=== PATIENT | male | born 1975 | race American Indian/Alaskan Native ===

== ENCOUNTER 2018-03-18 08:03 | Emergency (ER) | payer OTHER ==
[2018-03-18 09:16] LABS: Basophils % (Auto) 0.3 % (0.0-1.8); Eosinophils # (Auto) 0.1 K/mm3 (0.0-0.4); Eosinophils % (Auto) 1.8 % (0.0-4.3); Hematocrit 43.5 % (35.5-45.6); Lymphocytes # (Auto) 1.3 K/mm3 (1.2-5.4); Lymphocytes % (Auto) 17.7 % (13.4-35.0); Mean Corpuscular HGB Conc 34 % (32-34); Mean Corpuscular Hemoglobin 31 pg (28-32); Mean Corpuscular Volume 90 fl (84-94); Monocytes # (Auto) 0.6 K/mm3 (0.0-0.8); Monocytes % (Auto) 8.5 % (0.0-7.3); Platelet Count 154 K/mm3 (140-440); Red Blood Count 4.85 M/mm3 (3.65-5.03); Red Cell Distribution Width 13.6 % (13.2-15.2)
[2018-03-18 09:36] LABS: Alanine Aminotransferase 28 units/L (7-56); Albumin 4.1 g/dL (3.9-5); BUN/Creatinine Ratio 9; Blood Urea Nitrogen 6 mg/dL (9-20); Calcium 9.7 mg/dL (8.4-10.2); Hemolysis Index 5; Lipase 144 units/L (13-60)
[2018-03-18] MEDS ORDERED: ZOFRAN IV ONE (10:55)
[2018-03-18] MEDS ORDERED: SUBLIMAZE IV ONE (10:55)
[2018-03-18] MEDS ORDERED: ATIVAN IV ONE (10:55)
[2018-03-18] MEDS ORDERED: NACL 0.9% 1000 ML 1,000 ML IV ONE ×2 (10:55)
[2018-03-18] MEDS ORDERED: ATIVAN IV PRN ×3 (10:56)
[2018-03-18] MEDS ORDERED: VITAMIN B-1 100 MG, FOLVITE 1 MG, INFUVITE 10 ML, MAGNESIUM SULFATE 2 GM in NACL 0.9% 1... IV ONE (10:57)
--- NOTE | 2018-03-18 11:02 | Emergency Department Report ---
HPI - General Chief Complaint: Abdominal Pain Time Seen by Provider: 03/18/18 10:47 - HPI HPI: Room 22 The patient is a 42-year-old male presenting with a chief complaint of abdominal pain. Patient states 2 days ago "it felt like acid" at the top of the stomach. Yesterday patient developed sharp midepigastric abdominal pain that feels consistent with his last bout of pancreatitis. Patient denies nausea vomiting or diarrhea. Patient denies any history of fever. The patient gives his pain a score of 7/10. Patient admits to drinking approximately 50 ounces of beer daily and his last consumption occurred 2 days ago Location: Abdomen, see above Duration: [See above] Quality: Sharp. Consistent with pancreatitis Severity: 7/10 Modifying factors: [see above] Context: [see above] Mode of transportation: [not driving] ED Past Medical Hx - Past Medical History Previous Medical History?: Yes Hx Hypertension: Yes (no meds) Additional medical history: pancreatitis - Surgical History Past Surgical History?: No - Family History Family history: no significant - Social History Smoking Status: Current Every Day Smoker (1/2 pack per day) Substance Use Type: Alcohol (approximately 50 ounces of beer daily), Marijuana ED Review of Systems ROS: Stated complaint: STOMACH AND CHEST PAIN Other details as noted in HPI Constitutional: denies: fever Gastrointestinal: abdominal pain. denies: nausea, vomiting, diarrhea Physical Exam - Physical Exam Vital Signs: Vital Signs 03/18/18 03/18/18 03/18/18 08:17 09:57 10:01 Temperature 98.7 F Pulse Rate 93 H Respiratory 20 Rate Blood Pressure 135/103 148/92 O2 Sat by Pulse 99 99 99 Oximetry 03/18/18 10:06 Temperature 97.7 F Pulse Rate Respiratory 20 Rate Blood Pressure O2 Sat by Pulse 99 Oximetry Physical Exam: GENERAL: The patient is well-developed well-nourished male lying on stretcher not appearing to be in acute distress. Mild tremulousness noted when patient moves himself on bed HEENT: Normocephalic. Atraumatic. Extraocular motions are intact. Patient has moist mucous membranes. NECK: Supple. Trachea midline CHEST/LUNGS: Clear to auscultation. There is no respiratory distress noted. HEART/CARDIOVASCULAR: Regular. There is no tachycardia. There is no gallop rub or murmur. ABDOMEN: Abdomen is soft, with tenderness to palpation in the midepigastric region. There is no tenderness elsewhere in the abdomen. Patient has normal bowel sounds. There is no abdominal distention. SKIN: There is no rash. There is no edema. There is no diaphoresis. NEURO: The patient is awake, alert, and oriented. The patient is cooperative. Mild tremulousness noted. The patient has normal speech MUSCULOSKELETAL: There is no evidence of acute injury. ED Course Vital Signs 03/18/18 03/18/18 03/18/18 08:17 09:57 10:01 Temperature 98.7 F Pulse Rate 93 H Respiratory 20 Rate Blood Pressure 135/103 148/92 O2 Sat by Pulse 99 99 99 Oximetry 03/18/18 10:06 Temperature 97.7 F Pulse Rate Respiratory 20 Rate Blood Pressure O2 Sat by Pulse 99 Oximetry ED Medical Decision Making - Lab Data Result diagrams: 03/18/18 08:51 03/18/18 08:51 Laboratory Tests 03/18/18 03/18/18 08:51 08:51 WBC 7.4 RBC 4.85 Hgb 15.0 Hct 43.5 MCV 90 MCH 31 MCHC 34 RDW 13.6 Plt Count 154 Lymph % (Auto) 17.7 Alexander % (Auto) 8.5 H Eos % (Auto) 1.8 Baso % (Auto) 0.3 Lymph # 1.3 Alexander # 0.6 Eos # 0.1 Baso # 0.0 Seg Neutrophils % 71.7 H Seg Neutrophils # 5.3 Sodium 134 L Potassium 3.5 L Chloride 91.3 L Carbon Dioxide 28 Anion Gap 18 BUN 6 L Creatinine 0.7 L Estimated GFR > 60 BUN/Creatinine Ratio 9 Glucose 106 H Calcium 9.7 Total Bilirubin 0.80 AST 41 H ALT 28 Alkaline Phosphatase 133 H Total Protein 8.0 Albumin 4.1 Albumin/Globulin Ratio 1.1 Lipase 144 H - EKG Data -: EKG Interpreted by Me EKG shows normal: sinus rhythm Rate: normal - EKG Data When compared to previous EKG there are: previous EKG unavailable Interpretation: other (early repolarization) - Differential Diagnosis pancreatitis, peptic ulcer disease, GERD Critical care attestation.: If time is entered above; I have spent that time in minutes in the direct care of this critically ill patient, excluding procedure time. ED Disposition Clinical Impression: Acute pancreatitis, Alcohol withdrawal Disposition: DC-09 OP ADMIT IP TO THIS HOSP Is pt being admited?: Yes Does the pt Need Aspirin: No Condition: Fair Referrals: PRIMARY CARE,MD [Primary Care Provider] - 3-5 Days Time of Disposition: 11:04 (hospitalist paged (Dr Marsh))
--- NOTE | 2018-03-18 12:51 | History and Physical Report ---
History of Present Illness Chief complaint: My stomach hurts History of present illness: 42 YO Male with ETOH Abuse, Chronic Pancreatitis, HTN, Nicotine Dependence, Noncompliance presents to ED for evaluation of abdominal pain. Pt seen and evaluated in ED and found to have abdominal pain secondary to chronic pancreatitis s/p ETOH ingestion. Pt treated with supportive care, IVF resuscitation with improvement in symptoms. Pt medically optimized and back to usual states of health. Pt counseled regarding ETOH cessation, and compliance with prehospital mediation. Pt acknowledges understanding instruction. Pt to f/ u pcp 5 days, and AA at discharge. Past History Past Medical History: hypertension Past Surgical History: No surgical history Social history: single, lives with family, smoking, alcohol abuse Family history: hypertension Medications and Allergies Allergies Allergy/AdvReac Type Severity Reaction Status Date / Time No Known Allergies Allergy Unverified 03/18/18 08:17 Home Medications Medication Instructions Recorded Confirmed Last Taken Type Ondansetron [Zofran Odt] 4 mg PO Q8HR #15 tab.rapdis 03/18/18 Unknown Rx RX: Folic Acid [Folvite] 1 mg PO QDAY #30 tablet 03/18/18 Unknown Rx RX: Multivitamin Tab [Multiple 1 each PO QDAY #30 tablet 03/18/18 Unknown Rx Vitamin TAB (Theragran)] RX: Thiamine [Vitamin B-1] 100 mg PO QDAY #30 tablet 03/18/18 Unknown Rx oxyCODONE /ACETAMINOPHEN [Percocet 1 tab PO Q6HR PRN #10 tablet 03/18/18 Unknown Rx 5/325] Active Meds: Active Medications Sodium Chloride (Nacl 0.9% 1000 Ml) 1,000 mls @ 125 mls/hr IV ONCE ONE Stop: 03/18/18 18:54 Thiamine HCl 100 mg/ Folic Acid 1 mg/ Multivitamins/Minerals 10 ml/ Magnesium Sulfate 2 gm/ Sodium Chloride 1,015.2 mls @ 250 mls/hr IV ONCE ONE Stop: 03/18/18 15:00 Last Admin: 03/18/18 12:02 Dose: 250 mls/hr Lorazepam (Ativan) 2 mg IV Q1HR PRN PRN Reason: CIWA-Ar 8-15 Lorazepam (Ativan) 4 mg IV Q1HR PRN PRN Reason: CIWA-Ar 16-25 Lorazepam (Ativan) 4 mg IV Q15MIN PRN PRN Reason: CIWA-Ar >25 Review of Systems Constitutional: no weight loss, no weight gain, no fever, no chills Ears, nose, mouth and throat: no ear pain, no ear discharge, no tinnitis, no decreased hearing, no nose pain, no nasal congestion Cardiovascular: no chest pain, no orthopnea, no palpitations, no rapid/ irregular heart beat, no edema, no syncope Respiratory: no cough, no cough with sputum, no excessive sputum, no hemoptysis Gastrointestinal: abdominal pain, no nausea, no vomiting, no diarrhea, no constipation, no change in bowel habits, no hematemesis, no coffee ground emesis , no BRBPR, no melena, no hematochezia, no loss of appetite, no early satiety, no heartburn, no jaundice, no dyspepsia/bloating, no early satiety Genitourinary Male: no hematuria, no flank pain, no discharge, no urinary frequency, no urinary hesitancy Rectal: no pain, no incontinence, no bleeding Musculoskeletal: no neck stiffness, no neck pain, no shooting arm pain, no arm numbness/tingling, no low back pain, no shooting leg pain Integumentary: no rash, no pruritis, no redness, no sores, no wounds, no jaundice, no boils Neurological: no transient paralysis, no paralysis, no weakness, no parathesias , no numbness, no tingling, no syncope Psychiatric: no anxiety, no memory loss, no change in sleep habits, no sleep disturbances, no insomnia, no hypersomnia, no change in appetite, no change in libido, no suicidal ideation Endocrine: no cold intolerance, no heat intolerance, no polyphagia, no excessive thirst, no polydipsia, no polyuria, no nocturia, no excessive sweating Hematologic/Lymphatic: no easy bruising, no easy bleeding, no lymphadenopathy, no lymphedema Allergic/Immunologic: no urticaria, no allergic rhinitis, no wheezing, no persistent infections, no anaphylaxis Exam - Constitutional Vitals: Temp Pulse Resp BP Pulse Ox 97.7 F 93 H 20 142/100 97 03/18/18 10:06 03/18/18 08:17 03/18/18 10:06 03/18/18 11:01 03/18/18 11:01 General appearance: Present: no acute distress, well-nourished - EENT Eyes: Present: PERRL ENT: hearing intact, clear oral mucosa - Neck Neck: Present: supple, normal ROM - Respiratory Respiratory effort: normal Respiratory: bilateral: CTA - Cardiovascular Heart Sounds: Present: S1 & S2. Absent: rub, click - Extremities Extremities: pulses symmetrical, No edema Peripheral Pulses: within normal limits - Abdominal General gastrointestinal: Present: soft, non-tender, non-distended, normal bowel sounds Male genitourinary: Present: normal - Integumentary Integumentary: Present: clear, warm, dry - Musculoskeletal Musculoskeletal: gait normal, strength equal bilaterally - Psychiatric Psychiatric: appropriate mood/affect, intact judgment & insight - Neurologic Neurologic: CNII-XII intact, moves all extremities Results - Labs CBC & Chem 7: 03/18/18 08:51 03/18/18 08:51 Labs: Abnormal lab results 03/18/18 03/18/18 Range/Units 08:51 08:51 [place] % (Auto) 8.5 H (0.0-7.3) % Seg Neutrophils % 71.7 H (40.0-70.0) % Sodium 134 L (137-145) mmol/L Potassium 3.5 L (3.6-5.0) mmol/L Chloride 91.3 L (98-107) mmol/L BUN 6 L (9-20) mg/dL Creatinine 0.7 L (0.8-1.5) mg/dL Glucose 106 H (75-100) mg/dL AST 41 H (5-40) units/L Alkaline Phosphatase 133 H (35-129) units/L Lipase 144 H (13-60) units/L Assessment and Plan - Patient Problems (1) Abdominal pain Status: Acute Plan to address problem: Secondary to chronic pancreatitis, and ETOH abuse. Pt treated with Thiamine, folic acid, and multivitamin, f/u with pcp 5 days, and AA at discharge. Pt counseled regarding ETOH cessation. (2) ETOH abuse Status: Acute Plan to address problem: AA f/u at discharge
[2018-03-18] MEDS ORDERED: PERCOCET 5/325 ONE (14:30)
[2018-03-18] MEDS ORDERED: PERCOCET 5/325 PO ONE (14:30)
[2018-03-18 15:16] VITALS: BP 142/91
--- NOTE | 2018-03-18 15:20 | Cat Scan Report ---
FINAL REPORT EXAM: CT ABDOMEN W CON HISTORY: abdominal pain TECHNIQUE: A CT of the abdomen was performed. Images extend from the diaphragm to the iliac crests. 100 cc Omnipaque 300 IV was administered. No oral contrast was administered. Coronal and sagittal reformatted images were obtained. PRIORS: None. FINDINGS: The visualized aspects of the lung bases are clear. There is fatty infiltration of the liver. There is edema/inflammatory change around the pancreatic head and between the pancreatic head and duodenum. This appearance is consistent with acute pancreatitis. There is no pseudocyst or evidence of pancreatic necrosis. I cannot confirm any calcified gallstones. The visualized spleen, adrenal glands and kidneys demonstrate no significant abnormalities. There is no abdominal aortic aneurysm. The appendix is normal. There is no evidence of intestinal obstruction. There is no free intraperitoneal air. IMPRESSION: Acute pancreatitis. Fatty infiltration of the liver.
== END 2018-03-18 16:06 | disposition admitted as inpatient to this hospital (09) ==
LOC: ED 08:03
DX: R10.9 Unspecified abdominal pain (principal); F10.10 Alcohol abuse, uncomplicated; I10 Essential (primary) hypertension; K86.1 Other chronic pancreatitis
CPT/HCPCS: 36415; 74160; 80053; 83690; 85025; 93005; 96361; 96365; 96366; 96375; 99284; J2060; J2405; J3010; J3411; J3475; J7030; Q9967

== ENCOUNTER 2019-04-12 02:00 | Emergency (ER) | payer OTHER ==
[2019-04-12] MEDS ORDERED: ASPIRIN PO ONE (02:09)
--- NOTE | 2019-04-12 02:38 | XRay Report ---
PROCEDURE: XR CHEST 1V AP TECHNIQUE: Chest radiograph single view. HISTORY: Chest Pain COMPARISONS: None . FINDINGS: Heart: Normal. Mediastinum/Vessels: Normal. Lungs/Pleural space: Normal. Bony thorax: No acute osseous abnormality. Life support devices: None. IMPRESSION: No acute cardiopulmonary abnormality. This document is electronically signed by Dejan Mtz MD., Apr 12 2019 02:35:56 AM ET
[2019-04-12 02:42] LABS: Basophils % (Auto) 0.7 % (0.0-1.8); Eosinophils # (Auto) 0.1 K/mm3 (0.0-0.4); Eosinophils % (Auto) 1.9 % (0.0-4.3); Hematocrit 44.5 % (35.5-45.6); Hemoglobin 15.1 gm/dl (11.8-15.2); Lymphocytes # (Auto) 1.6 K/mm3 (1.2-5.4); Lymphocytes % (Auto) 27.9 % (13.4-35.0); Mean Corpuscular HGB Conc 34 % (32-34); Mean Corpuscular Volume 94 fl (84-94); Monocytes # (Auto) 0.5 K/mm3 (0.0-0.8); Monocytes % (Auto) 7.9 % (0.0-7.3); Platelet Count 183 K/mm3 (140-440); Red Blood Count 4.73 M/mm3 (3.65-5.03); Red Cell Distribution Width 12.7 % (13.2-15.2)
[2019-04-12 04:07] LABS: BUN/Creatinine Ratio 6; Blood Urea Nitrogen 5 mg/dL (9-20); Calcium 9.5 mg/dL (8.4-10.2); Hemolysis Index 11
--- NOTE | 2019-04-12 08:24 | Emergency Department Report ---
ED Abdominal Pain HPI - General Chief Complaint: Back Pain/Injury Stated Complaint: LOWER BACK PAIN/ROBERT Source: patient Mode of arrival: Ambulatory Limitations: No Limitations - History of Present Illness Initial Comments: This is a 43-year-old -[place] male who presents to the emergency room with abdominal pain radiating into chest and back for 2 days. Past medical hi story of pancreatitis and hypertension. Patient states he drinks beer occasionally. Patient states he doesn't drink daily since the diagnosis of pancreatitis last year. He also reports occasional cough. He has taken Tylenol which stops pain for about 3-4 hours and then it returns. Patient reports pain is sharp and constant stabbing pain that lasts for several hours. He denies nausea, vomiting, palpitations, shortness of breath, urinary frequency, urgency, or dysuria. MD Complaint: abdominal pain Onset/Timin -: days(s) Location: diffuse Radiation: back, chest Migration to: no migration Severity: severe Severity scale (0 -10): 9 Quality: stabbing, sharp Consistency: intermittent Improves With: nothing Worsens With: nothing Associated Symptoms: denies other symptoms Treatments Prior to Arrival: NSAIDs - Related Data Previous Rx's Medication Instructions Recorded Last Taken Type Folic Acid [Folvite] 1 mg PO QDAY #30 tablet 03/18/18 Unknown Rx Multivitamin Tab [Multiple Vitamin 1 each PO QDAY #30 tablet 03/18/18 Unknown Rx TAB (Theragran)] Ondansetron [Zofran Odt] 4 mg PO Q8HR #15 tab.rapdis 03/18/18 Unknown Rx Thiamine [Vitamin B-1] 100 mg PO QDAY #30 tablet 03/18/18 Unknown Rx oxyCODONE /ACETAMINOPHEN [Percocet 1 tab PO Q6HR PRN #10 tablet 03/18/18 Unknown Rx 5/325] HYDROcodone/APAP 5-325 [Marcy 1 each PO Q6HR PRN #12 tablet 04/12/19 Unknown Rx 5/325] Naproxen [Naprosyn] 500 mg PO TID PRN #20 tablet 04/12/19 Unknown Rx Allergies Allergy/AdvReac Type Severity Reaction Status Date / Time No Known Allergies Allergy Unverified 03/18/18 08:17 ED Review of Systems ROS: Stated complaint: LOWER BACK PAIN/ROBERT Other details as noted in HPI Constitutional: denies: chills, fever Respiratory: cough. denies: shortness of breath, wheezing Cardiovascular: denies: chest pain, palpitations Gastrointestinal: abdominal pain. denies: nausea, diarrhea Genitourinary: denies: urgency, dysuria Musculoskeletal: back pain. denies: joint swelling, arthralgia Skin: denies: rash, lesions Neurological: denies: headache, weakness, paresthesias Psychiatric: denies: anxiety, depression ED Past Medical Hx - Past Medical History Previous Medical History?: Yes Hx Hypertension: Yes (no meds) Additional medical history: pancreatitis - Surgical History Past Surgical History?: No - Social History Smoking Status: Current Every Day Smoker Substance Use Type: None - Medications Home Medications: Home Medications Medication Instructions Recorded Confirmed Last Taken Type Folic Acid [Folvite] 1 mg PO QDAY #30 tablet 03/18/18 Unknown Rx Multivitamin Tab [Multiple Vitamin 1 each PO QDAY #30 tablet 03/18/18 Unknown Rx TAB (Theragran)] Ondansetron [Zofran Odt] 4 mg PO Q8HR #15 tab.rapdis 03/18/18 Unknown Rx Thiamine [Vitamin B-1] 100 mg PO QDAY #30 tablet 03/18/18 Unknown Rx oxyCODONE /ACETAMINOPHEN [Percocet 1 tab PO Q6HR PRN #10 tablet 03/18/18 Unknown Rx 5/325] HYDROcodone/APAP 5-325 [Marcy 1 each PO Q6HR PRN #12 tablet 04/12/19 Unknown Rx 5/325] Naproxen [Naprosyn] 500 mg PO TID PRN #20 tablet 04/12/19 Unknown Rx ED Physical Exam - General Limitations: No Limitations General appearance: alert, in no apparent distress - Respiratory Respiratory exam: Present: normal lung sounds bilaterally. Absent: respiratory distress - Cardiovascular Cardiovascular Exam: Present: regular rate, normal rhythm. Absent: systolic murmur, diastolic murmur, rubs, gallop - GI/Abdominal GI/Abdominal exam: Present: soft, tenderness (right upper quadrant and right lower quadrant tenderness), normal bowel sounds. Absent: distended, guarding, rebound, rigid, organomegaly, mass, bruit, pulsatile mass, hernia - Back Exam Back exam: Present: full ROM. Absent: CVA tenderness (R), CVA tenderness (L) - Neurological Exam Neurological exam: Present: alert, oriented X3, normal gait - Psychiatric Psychiatric exam: Present: normal affect, normal mood - Skin Skin exam: Present: warm, dry, intact, normal color. Absent: rash ED Course Vital Signs 04/12/19 02:05 Temperature 97.7 F Pulse Rate 90 Respiratory 18 Rate Blood Pressure 137/98 O2 Sat by Pulse 99 Oximetry ED Medical Decision Making - Lab Data Result diagrams: 04/12/19 02:29 04/12/19 02:29 Lab Results 04/12/19 04/12/19 04/12/19 Range/Units 02:29 02:29 05:22 WBC 5.9 (4.5-11.0) K/mm3 RBC 4.73 (3.65-5.03) M/mm3 Hgb 15.1 (11.8-15.2) gm/dl Hct 44.5 (35.5-45.6) % MCV 94 (84-94) fl MCH 32 (28-32) pg MCHC 34 (32-34) % RDW 12.7 L (13.2-15.2) % Plt Count 183 (140-440) K/mm3 Lymph % (Auto) 27.9 (13.4-35.0) % Johnston % (Auto) 7.9 H (0.0-7.3) % Eos % (Auto) 1.9 (0.0-4.3) % Baso % (Auto) 0.7 (0.0-1.8) % Lymph # 1.6 (1.2-5.4) K/mm3 Johnston # 0.5 (0.0-0.8) K/mm3 Eos # 0.1 (0.0-0.4) K/mm3 Baso # 0.0 (0.0-0.1) K/mm3 Seg Neutrophils % 61.6 (40.0-70.0) % Seg Neutrophils # 3.6 (1.8-7.7) K/mm3 Sodium 136 L (137-145) mmol/L Potassium 3.8 (3.6-5.0) mmol/L Chloride 96.4 L (98-107) mmol/L Carbon Dioxide 26 (22-30) mmol/L Anion Gap 17 mmol/L BUN 5 L (9-20) mg/dL Creatinine 0.9 (0.8-1.5) mg/dL Estimated GFR > 60 ml/min BUN/Creatinine Ratio 6 % Glucose 133 H (75-100) mg/dL Calcium 9.5 (8.4-10.2) mg/dL Troponin T < 0.010 < 0.010 (0.00-0.029) ng/mL Lipase (13-60) units/L Urine Color (Yellow) Urine Turbidity (Clear) Urine pH (5.0-7.0) Ur Specific [place] (1.003-1.030) Urine Protein (Negative) mg/dL Urine Glucose (UA) (Negative) mg/dL Urine Ketones (Negative) mg/dL Urine Blood (Negative) Urine Nitrite (Negative) Urine Bilirubin (Negative) Urine Urobilinogen (<2.0) mg/dL Ur Leukocyte Esterase (Negative) Urine WBC (Auto) (0.0-6.0) /HPF Urine RBC (Auto) (0.0-6.0) /HPF U Epithel Cells (Auto) (0-13.0) /HPF Urine Bacteria (Auto) (Negative) /HPF 04/12/19 04/12/19 Range/Units 08:17 08:38 WBC (4.5-11.0) K/mm3 RBC (3.65-5.03) M/mm3 Hgb (11.8-15.2) gm/dl Hct (35.5-45.6) % MCV (84-94) fl MCH (28-32) pg MCHC (32-34) % RDW (13.2-15.2) % Plt Count (140-440) K/mm3 Lymph % (Auto) (13.4-35.0) % Johnston % (Auto) (0.0-7.3) % Eos % (Auto) (0.0-4.3) % Baso % (Auto) (0.0-1.8) % Lymph # (1.2-5.4) K/mm3 Johnston # (0.0-0.8) K/mm3 Eos # (0.0-0.4) K/mm3 Baso # (0.0-0.1) K/mm3 Seg Neutrophils % (40.0-70.0) % Seg Neutrophils # (1.8-7.7) K/mm3 Sodium (137-145) mmol/L Potassium (3.6-5.0) mmol/L Chloride (98-107) mmol/L Carbon Dioxide (22-30) mmol/L Anion Gap mmol/L BUN (9-20) mg/dL Creatinine (0.8-1.5) mg/dL Estimated GFR ml/min BUN/Creatinine Ratio % Glucose (75-100) mg/dL Calcium (8.4-10.2) mg/dL Troponin T < 0.010 (0.00-0.029) ng/mL Lipase 190 H (13-60) units/L Urine Color Yellow (Yellow) Urine Turbidity Clear (Clear) Urine pH 5.0 (5.0-7.0) Ur Specific [place] 1.011 (1.003-1.030) Urine Protein <15 mg/dl (Negative) mg/dL Urine Glucose (UA) Neg (Negative) mg/dL Urine Ketones Neg (Negative) mg/dL Urine Blood Neg (Negative) Urine Nitrite Neg (Negative) Urine Bilirubin Neg (Negative) Urine Urobilinogen 4.0 (<2.0) mg/dL Ur Leukocyte Esterase Neg (Negative) Urine WBC (Auto) 1.0 (0.0-6.0) /HPF Urine RBC (Auto) 3.0 (0.0-6.0) /HPF U Epithel Cells (Auto) < 1.0 (0-13.0) /HPF Urine Bacteria (Auto) 1+ (Negative) /HPF - Radiology Data Radiology results: report reviewed PROCEDURE: XR CHEST 1V AP TECHNIQUE: Chest radiograph single view. HISTORY: Chest Pain COMPARISONS: None . FINDINGS: Heart: Normal. Mediastinum/Vessels: Normal. Lungs/Pleural space: Normal. Bony thorax: No acute osseous abnormality. Life support devices: None. IMPRESSION: No acute cardiopulmonary abnormality. CT ABDOMEN PELVIS WITH CONTRAST: HISTORY: Right upper quadrant and left upper quadrant tenderness, pancreatitis. COMPARISON: 03/18/18. TECHNIQUE: Helical CT in 1.25mm intervals following IV contrast. Sagittal and coronal reconstructions. FINDINGS: Lung bases: Normal. Liver: Mild diffuse fatty infiltration is noted throughout the liver although this has improved since the comparison exam. No focal liver mass. Biliary system: Normal. Pancreas: Minimal fluid and fat stranding surrounds the pancreatic head. This could represent early pancreatitis. No obvious mass, necrosis or pseudocyst. Spleen: Normal. Kidneys/ureters/bladder: Normal. Adrenal glands: Normal. Aorta: Normal. Intestines: Normal. Appendix: Normal. Pelvic viscera: Normal. Ascites: None. Adenopathy: None. Musculoskeletal: Normal. IMPRESSION: Findings suggestive of acute pancreatitis. See above correlate with the patient's clinical presentation. Hepatic steatosis, improved since 03/18/18. - Medical Decision Making Patient was examined by me. Vitals are normal and patient is in no acute distress. IV site initiated. Given Dilaudid 1 mg IV. Obtain CBC, CMP, troponin is 3, lipase, chest x-ray, urinalysis, and CT of abdomen and pelvis with contrast. Lipase elevated. All other labs are unremarkable. Chest x-ray and CT of abdomen and pelvis obtained and dictated by radiologist. Chest x-ray negative of acute cardiopulmonary findings. CT of abdomen and pelvis Findings suggestive of acute pancreatitis. See above correlate with the patient's clinical presentation. Hepatic steatosis, improved since 03/18/18. Patient is tolerating oral fluids while in the ER. There is no evidence of biliary tract disease. He has a history of chronic pancreatitis which is acute. Patient will be discharged home with Marcy and naproxen for pain control. Follow-up with the primary care provider at [facility]. Plan discussed with patient to discharge home and treat outpatient. He agrees with ER plan. Patient discharged home in stable condition. Follow up with PCP in 2-3 days. Critical care attestation.: If time is entered above; I have spent that time in minutes in the direct care of this critically ill patient, excluding procedure time. ED Disposition Clinical Impression: Abdominal pain Qualifiers: Abdominal location: generalized Qualified Code(s): R10.84 - Generalized abdominal pain Acute pancreatitis Qualifiers: Pancreatitis type: alcohol induced Acute pancreatitis complication: no infection or necrosis Qualified Code(s): K85.20 - Alcohol induced acute pancreatitis without necrosis or infection Disposition: - TO HOME OR SELFCARE Is pt being admited?: No Does the pt Need Aspirin: No Condition: Stable Instructions: Pancreatitis (ED), Acute Abdominal Pain (ED) Additional Instructions: Take pain medication every 6-8 hours as needed for pain. Follow up with a primary care doctor on the referral slips below in the next 3-5 days. Return to the emergency room if nausea, vomiting, diarrhea, unable to keep food or liquid down, or increasing pain. Prescriptions: Naproxen [Naprosyn] 500 mg PO TID PRN #20 tablet PRN Reason: Pain, Moderate (4-6) HYDROcodone/APAP 5-325 [Marcy 5/325] 1 each PO Q6HR PRN #12 tablet PRN Reason: Pain Referrals: KEVYN KERNS MD [Primary Care Provider] - 3-[address] [facility] [Outside] - 3-5 Days [facility] [Outside] - 3-5 Days Forms: Work/School Release Form(ED) Time of Disposition: 09:56
[2019-04-12 09:04] LABS: Color,Urine Yellow (Yellow)
[2019-04-12 09:05] LABS: Bacteria,Urine 1+ /HPF (Negative); Bilirubin,Urine NEG (Negative); Blood,Urine NEG (Negative); Protein,Urine <15 mg/dL mg/dL (Negative)
--- NOTE | 2019-04-12 09:33 | Cat Scan Report ---
CT ABDOMEN PELVIS WITH CONTRAST: HISTORY: Right upper quadrant and left upper quadrant tenderness, pancreatitis. COMPARISON: 03/18/18. TECHNIQUE: Helical CT in 1.25mm intervals following IV contrast. Sagittal and coronal reconstructions. FINDINGS: Lung bases: Normal. Liver: Mild diffuse fatty infiltration is noted throughout the liver although this has improved since the comparison exam. No focal liver mass. Biliary system: Normal. Pancreas: Minimal fluid and fat stranding surrounds the pancreatic head. This could represent early pancreatitis. No obvious mass, necrosis or pseudocyst. Spleen: Normal. Kidneys/ureters/bladder: Normal. Adrenal glands: Normal. Aorta: Normal. Intestines: Normal. Appendix: Normal. Pelvic viscera: Normal. Ascites: None. Adenopathy: None. Musculoskeletal: Normal. IMPRESSION: Findings suggestive of acute pancreatitis. See above correlate with the patient's clinical presentation. Hepatic steatosis, improved since 03/18/18.
[2019-04-12] MEDS ORDERED: DILAUDID IV ONE (09:42)
[2019-04-12 10:10] VITALS: BP 131/90
== END 2019-04-12 10:09 | disposition home or self-care (01) ==
LOC: ED 02:00
DX: K85.20 Alcohol induced acute pancreatitis without necrosis or infection (principal); I10 Essential (primary) hypertension; F17.200 Nicotine dependence, unspecified, uncomplicated
CPT/HCPCS: 36415; 71045; 74177; 80048; 81001; 83690; 84484; 85025; 93005; 93010; 96374; 99284; J1170; Q9967

== ENCOUNTER 2019-06-22 05:57 | Emergency (ER) | payer SELFPAY ==
[2019-06-22 06:10] VITALS: BP 142/101
[2019-06-22] MEDS ORDERED: ZOFRAN IV ONE (06:29)
[2019-06-22] MEDS ORDERED: SUBLIMAZE IV ONE (06:29)
[2019-06-22] MEDS ORDERED: NACL 0.9% 1000 ML 1,000 ML IV ONE (06:29)
--- NOTE | 2019-06-22 06:33 | Emergency Department Report ---
HPI - General Chief Complaint: Abdominal Pain Time Seen by Provider: 06/22/19 06:23 - HPI HPI: Room 26 The patient is a 43-year-old male presenting with a chief complaint of abdominal pain. Patient has a history of daily alcohol use and states she's been diagnosed with pancreatitis 2 times in the past (most recent time approximately 4.5 months ago). The patient states for the past 3 days he's had periumbilical abdominal pain is constant and stabbing in nature consistent with his previous bouts of pancreatitis. Patient denies nausea vomiting or diarrhea. Patient denies history of fever. The patient currently gives his pain a score of 10/10 Location: Abdomen Duration: 3 days Quality: Stabbing Severity: 10/10 Modifying factors: [place]ley helps momentarily Context: [see above] Mode of transportation: [not driving] ED Past Medical Hx - Past Medical History Previous Medical History?: Yes Hx Hypertension: Yes (no meds) Additional medical history: pancreatitis - Surgical History Past Surgical History?: No - Family History Family history: no significant - Social History Smoking Status: Current Every Day Smoker (1/2 pack per day) Substance Use Type: Alcohol (daily), Marijuana - Medications Home Medications: Home Medications Medication Instructions Recorded Confirmed Last Taken Type Folic Acid [Folvite] 1 mg PO QDAY #30 tablet 03/18/18 Unknown Rx Multivitamin Tab [Multiple Vitamin 1 each PO QDAY #30 tablet 03/18/18 Unknown Rx TAB (Theragran)] Ondansetron [Zofran Odt] 4 mg PO Q8HR #15 tab.rapdis 03/18/18 Unknown Rx Thiamine [Vitamin B-1] 100 mg PO QDAY #30 tablet 03/18/18 Unknown Rx oxyCODONE /ACETAMINOPHEN [Percocet 1 tab PO Q6HR PRN #10 tablet 03/18/18 Unknown Rx 5/325] HYDROcodone/APAP 5-325 [[place] 1 each PO Q6HR PRN #12 tablet 04/12/19 Unknown Rx 5/325] Naproxen [Naprosyn] 500 mg PO TID PRN #20 tablet 04/12/19 Unknown Rx HYDROcodone/APAP 5-325 [[place] 1 - 2 each PO Q6HR PRN #10 tablet 06/22/19 Unknown Rx 5/325] ED Review of Systems ROS: Stated complaint: PANCREATIS FLARE UP Other details as noted in HPI Constitutional: denies: fever Eyes: denies: eye pain ENT: denies: throat pain Respiratory: no symptoms reported Cardiovascular: denies: chest pain Endocrine: no symptoms reported Gastrointestinal: abdominal pain. denies: nausea, vomiting, diarrhea Genitourinary: denies: dysuria Musculoskeletal: back pain Neurological: denies: headache Physical Exam - Physical Exam Vital Signs: Vital Signs 06/22/19 06:08 Temperature 97.7 F Pulse Rate 109 H Respiratory 18 Rate Blood Pressure 142/101 O2 Sat by Pulse 99 Oximetry Physical Exam: GENERAL: The patient is well-developed well-nourished male lying on stretcher not appearing to be in acute distress. [] HEENT: Normocephalic. Atraumatic. Extraocular motions are intact. Patient has moist mucous membranes. NECK: Supple. Trachea midline CHEST/LUNGS: Clear to auscultation. There is no respiratory distress noted. HEART/CARDIOVASCULAR: Regular. There is no tachycardia. There is no gallop rub or murmur. ABDOMEN: Abdomen is soft, with tenderness diffusely but greatest in the right upper quadrant and midepigastric region. There is no tenderness to palpation in the right lower quadrant. Patient has normal bowel sounds. There is no abdominal distention. SKIN: There is no rash. There is no edema. There is no diaphoresis. NEURO: The patient is awake, alert, and oriented. The patient is cooperative. The patient has normal speech MUSCULOSKELETAL: There is no CVA tenderness. There is no evidence of acute injury. ED Course Vital Signs 06/22/19 06:08 Temperature 97.7 F Pulse Rate 109 H Respiratory 18 Rate Blood Pressure 142/101 O2 Sat by Pulse 99 Oximetry ED Medical Decision Making - Lab Data Result diagrams: 06/22/19 06:17 06/22/19 06:17 Laboratory Tests 06/22/19 06/22/19 06/22/19 06:17 06:17 Unknown WBC 5.3 RBC 5.10 H Hgb 16.4 H Hct 47.0 H MCV 92 MCH 32 MCHC 35 H RDW 12.9 L Plt Count 171 Lymph % (Auto) 21.7 [place] % (Auto) 11.9 H Eos % (Auto) 2.3 Baso % (Auto) 0.5 Lymph # 1.1 L [place] # 0.6 Eos # 0.1 Baso # 0.0 Seg Neutrophils % 63.6 Seg Neutrophils # 3.4 Sodium 132 L Potassium 4.1 Chloride 90.2 L Carbon Dioxide 25 Anion Gap 21 BUN 8 L Creatinine 0.8 Estimated GFR > 60 BUN/Creatinine Ratio 10 Glucose 93 Calcium 10.0 Total Bilirubin 1.30 H AST 49 H ALT 42 Alkaline Phosphatase 149 H Total Protein 8.3 H Albumin 4.3 Albumin/Globulin Ratio 1.1 Lipase 261 H Urine Color [place] Urine Turbidity Clear Urine pH 5.0 Ur Specific [place] 1.021 Urine Protein 30 mg/dl Urine Glucose (UA) Neg Urine Ketones 80 Urine Blood Neg Urine Nitrite Neg Urine Bilirubin Neg Urine Urobilinogen 4.0 Ur Leukocyte Esterase Neg Urine WBC (Auto) 3.0 Urine RBC (Auto) 4.0 U Epithel Cells (Auto) 2.0 Urine Mucus Few - Radiology Data Radiology results: report reviewed (right upper quadrant ultrasound), image reviewed (right upper quadrant ultrasound) [facility] [address] [place] [address] Ultrasound Report Signed Patient: DRE HERNANDEZ MR#: [id number] : 1975 Acct:[id number] Age/Sex: 43 / M ADM Date: 06/22/19 Loc: ED A ttending Dr: Ordering Physician: TODD WORLEY MD Date of Service: 06/22/19 Procedure(s): US abdomen limited Accession Number(s): [id number] cc: TODD WORLEY MD ULTRASOUND ABDOMEN, LIMITED (RIGHT UPPER QUADRANT) INDICATION / CLINICAL INFORMATION: Right upper quadrant, epigastric pain. Pancreatitis. COMPARISON: CT of the abdomen and pelvis 04/12/2019 FINDINGS: PANCREAS: Visualized portion of the pancreatic body appears more hypoechoic than expected, suggesting edema. No focal pancreatic lesion is identified. LIVER: Normal contour. No focal hepatic lesion. Diffusely and markedly increased hepatic echogenicity is noted. GALLBLADDER: No significant abnormality. No stones or sludge identified. BILE DU CTS: No significant abnormality. Common bile duct measures 1 mm. FREE FLUID: None. ADDITIONAL FINDINGS: None. IMPRESSION: 1. Diffuse hepatic steatosis. 2. Normal gallbladder. No stones or sludge identified. 3. Pancreatic parenchyma appears hypoechoic, which could be due to edema. Correlation with laboratory analysis for additional evidence of pancreatitis is recommended. Signer Name: Eze Benton MD Signed: 06/22/2019 8:44 AM Workstation Name: [id number] Transcribed By: DMB Dictated By: Eze Benton MD Electronically Authenticated By: Eze Benton MD Signed Date/Time: 06/22/19843 DD/ 6 TD/TT: - Medical Decision Making Discussed with the patient his study findings. I recommended admission to the hospital for further evaluation/management of his acute pancreatitis. Patient states he has a pressing family matters that he needs to attend to, but he will return to the hospital for admission. Strong warnings given - Differential Diagnosis pancreatitis, gastritis, cholelithiasis, peptic ulcer disease Critical care attestation.: If time is entered above; I have spent that time in minutes in the direct care of this critically ill patient, excluding procedure time. ED Disposition Clinical Impression: Acute abdominal pain, Acute pancreatitis, ETOH abuse Disposition: LEFT AGAINST MED ADVICE Is pt being admited?: No Does the pt Need Aspirin: No Condition: Undetermined Instructions: Pancreatitis (ED) Additional Instructions: Return to the emergency department immediately should you develop worsening symptoms, fever, inability to tolerate food or liquid or any other concerns. Prescriptions: HYDROcodone/APAP 5-325 [[place] 5/325] 1 - 2 each PO Q6HR PRN #10 tablet PRN Reason: Pain Referrals: PRIMARY CARE, [Referring] - 3-5 Days Time of Disposition: 08:56 (patient leaving AMA)
[2019-06-22 06:46] LABS: Basophils % (Auto) 0.5 % (0.0-1.8); Eosinophils # (Auto) 0.1 K/mm3 (0.0-0.4); Eosinophils % (Auto) 2.3 % (0.0-4.3); Hemoglobin 16.4 gm/dl (11.8-15.2); Lymphocytes # (Auto) 1.1 K/mm3 (1.2-5.4); Lymphocytes % (Auto) 21.7 % (13.4-35.0); Mean Corpuscular HGB Conc 35 % (32-34); Mean Corpuscular Volume 92 fl (84-94); Monocytes # (Auto) 0.6 K/mm3 (0.0-0.8); Monocytes % (Auto) 11.9 % (0.0-7.3); Platelet Count 171 K/mm3 (140-440); Red Cell Distribution Width 12.9 % (13.2-15.2)
[2019-06-22 06:56] LABS: Bilirubin,Urine NEG (Negative); Blood,Urine NEG (Negative); Color,Urine Amber (Yellow); Mucus,Urine FEW /HPF
[2019-06-22 07:03] LABS: Alanine Aminotransferase 42 units/L (7-56); Albumin 4.3 g/dL (3.9-5); BUN/Creatinine Ratio 10; Blood Urea Nitrogen 8 mg/dL (9-20); Hemolysis Index 4
--- NOTE | 2019-06-22 08:48 | Ultrasound Report ---
ULTRASOUND ABDOMEN, LIMITED (RIGHT UPPER QUADRANT) INDICATION / CLINICAL INFORMATION: Right upper quadrant, epigastric pain. Pancreatitis. COMPARISON: CT of the abdomen and pelvis 04/12/2019 FINDINGS: PANCREAS: Visualized portion of the pancreatic body appears more hypoechoic than expected, suggesting edema. No focal pancreatic lesion is identified. LIVER: Normal contour. No focal hepatic lesion. Diffusely and markedly increased hepatic echogenicity is noted. GALLBLADDER: No significant abnormality. No stones or sludge identified. BILE DUCTS: No significant abnormality. Common bile duct measures 1 mm. FREE FLUID: None. ADDITIONAL FINDINGS: None. IMPRESSION: 1. Diffuse hepatic steatosis. 2. Normal gallbladder. No stones or sludge identified. 3. Pancreatic parenchyma appears hypoechoic, which could be due to edema. Correlation with laboratory analysis for additional evidence of pancreatitis is recommended. Signer Name: Eze Benton MD Signed: 06/22/2019 8:44 AM Workstation Name: [id number]
== END 2019-06-22 09:31 | disposition left against medical advice (07) ==
LOC: ED 05:57
DX: K85.90 Acute pancreatitis without necrosis or infection, unspecified (principal); F10.10 Alcohol abuse, uncomplicated; F17.200 Nicotine dependence, unspecified, uncomplicated; F12.10 Cannabis abuse, uncomplicated; Z79.899 Other long term (current) drug therapy
CPT/HCPCS: 36415; 76705; 80053; 81001; 83690; 85025; 96374; 96375; 99284; J2405; J3010; J7030

== ENCOUNTER 2019-06-24 22:09 | Inpatient (IN) | payer SELFPAY ==
[2019-06-25 00:49] LABS: Hematocrit 43.5 % (35.5-45.6); Hemoglobin 14.9 gm/dl (11.8-15.2); Mean Corpuscular HGB Conc 34 % (32-34); Mean Corpuscular Volume 94 fl (84-94); Platelet Count 215 K/mm3 (140-440); Red Blood Count 4.65 M/mm3 (3.65-5.03); Red Cell Distribution Width 13.3 % (13.2-15.2)
[2019-06-25 00:50] LABS: Basophils % (Auto) 0.5 % (0.0-1.8); Eosinophils # (Auto) 0.1 K/mm3 (0.0-0.4); Eosinophils % (Auto) 1.8 % (0.0-4.3); Lymphocytes # (Auto) 1.5 K/mm3 (1.2-5.4); Monocytes # (Auto) 0.9 K/mm3 (0.0-0.8); Monocytes % (Auto) 13.2 % (0.0-7.3)
[2019-06-25 01:33] LABS: BUN/Creatinine Ratio 10; Blood Urea Nitrogen 7 mg/dL (9-20)
[2019-06-25 01:34] LABS: Alanine Aminotransferase 37 units/L (7-56); Albumin 4.2 g/dL (3.9-5); Calcium 9.6 mg/dL (8.4-10.2); Hemolysis Index 16
[2019-06-25 01:45] LABS: Bacteria,Urine 1+ /HPF (Negative); Bilirubin,Urine NEG (Negative); Blood,Urine SM (Negative); Color,Urine Yellow (Yellow); Protein,Urine <15 mg/dL mg/dL (Negative)
[2019-06-25] MEDS ORDERED: NACL 0.9% 1000 ML 1,000 ML IV ONE (02:50)
[2019-06-25] MEDS ORDERED: SUBLIMAZE IV ONE (02:50)
[2019-06-25] MEDS ORDERED: ZOFRAN IV ONE (02:50)
--- NOTE | 2019-06-25 02:54 | Emergency Department Report ---
HPI - General Chief Complaint: Abdominal Pain Time Seen by Provider: 06/25/19 02:44 - HPI HPI: Room 7 The patient is a 43-year-old male presenting with a chief complaint abdominal pain. Patient was seen by myself 2 days ago for the same and diagnosed with acute pancreatitis. Patient was offered admission to the hospital but stated he had a pressing family matters to attend to and subsequently signed out AGAINST MEDICAL ADVICE from the emergency department. Patient states he used pain medication I had prescribed for him but it only temporarily eased his pain. Patient returns to emergency department with continued diffuse abdominal pain and gives a score of 10/10 Location: [See above] Duration: [See above] Quality: [See above] Severity: [See above] Modifying factors: [see above] Context: [see above] Mode of transportation: [not driving] ED Past Medical Hx - Past Medical History Previous Medical History?: Yes Hx Hypertension: Yes (no meds) Additional medical history: pancreatitis - Surgical History Past Surgical History?: No - Family History Family history: no significant - Social History Smoking Status: Current Every Day Smoker Substance Use Type: Alcohol, Marijuana - Medications Home Medications: Home Medications Medication Instructions Recorded Confirmed Last Taken Type Folic Acid [Folvite] 1 mg PO QDAY #30 tablet 03/18/18 Unknown Rx Multivitamin Tab [Multiple Vitamin 1 each PO QDAY #30 tablet 03/18/18 Unknown Rx TAB (Theragran)] Ondansetron [Zofran Odt] 4 mg PO Q8HR #15 tab.rapdis 03/18/18 Unknown Rx Thiamine [Vitamin B-1] 100 mg PO QDAY #30 tablet 03/18/18 Unknown Rx oxyCODONE /ACETAMINOPHEN [Percocet 1 tab PO Q6HR PRN #10 tablet 03/18/18 Unknown Rx 5/325] HYDROcodone/APAP 5-325 [[place] 1 each PO Q6HR PRN #12 tablet 04/12/19 Unknown Rx 5/325] Naproxen [Naprosyn] 500 mg PO TID PRN #20 tablet 04/12/19 Unknown Rx HYDROcodone/APAP 5-325 [[place] 1 - 2 each PO Q6HR PRN #10 tablet 06/22/19 Unknown Rx 5/325] ED Review of Systems ROS: Stated complaint: PANCREATIS Other details as noted in HPI Constitutional: no symptoms reported Eyes: denies: eye pain ENT: denies: throat pain Respiratory: no symptoms reported Cardiovascular: denies: chest pain Endocrine: no symptoms reported Gastrointestinal: abdominal pain Genitourinary: denies: dysuria Musculoskeletal: denies: back pain Neurological: denies: headache Physical Exam - Physical Exam Vital Signs: Vital Signs 06/24/19 23:21 Temperature 98.1 F Pulse Rate 102 H Respiratory 18 Rate Blood Pressure 126/84 O2 Sat by Pulse 99 Oximetry Physical Exam: GENERAL: The patient is well-developed well-nourished male lying on stretcher moaning complaining of abdominal pain. [] HEENT: Normocephalic. Atraumatic. Extraocular motions are intact. Patient has moist mucous membranes. NECK: Supple. Trachea midline CHEST/LUNGS: Clear to auscultation. There is no respiratory distress noted. HEART/CARDIOVASCULAR: Regular. There is no tachycardia. There is no gallop rub or murmur. ABDOMEN: Abdomen is soft, with diffuse tenderness to palpation. Patient has normal bowel sounds. There is no abdominal distention. SKIN: There is no rash. There is no edema. There is no diaphoresis. NEURO: The patient is awake, alert, and oriented. The patient is cooperative. The patient has normal speech MUSCULOSKELETAL: There is no evidence of acute injury. ED Course Vital Signs 06/24/19 23:21 Temperature 98.1 F Pulse Rate 102 H Respiratory 18 Rate Blood Pressure 126/84 O2 Sat by Pulse 99 Oximetry ED Medical Decision Making - Lab Data Result diagrams: 06/24/19 23:40 06/24/19 23:40 Laboratory Results - last 72 hr 06/24/19 06/24/19 06/25/19 23:40 23:40 00:28 WBC 7.1 RBC 4.65 Hgb 14.9 Hct 43.5 MCV 94 MCH 34 H MCHC 34 RDW 13.3 Plt Count 215 Lymph % (Auto) 21.0 [place] % (Auto) 13.2 H Eos % (Auto) 1.8 Baso % (Auto) 0.5 Lymph # 1.5 [place] # 0.9 H Eos # 0.1 Baso # 0.0 Seg Neutrophils % 63.5 Seg Neutrophils # 4.5 Sodium 136 L Potassium 4.0 Chloride 95.2 L Carbon Dioxide 27 Anion Gap 18 BUN 7 L Creatinine 0.7 L Estimated GFR > 60 BUN/Creatinine Ratio 10 Glucose 93 Calcium 9.6 Total Bilirubin 0.50 AST 49 H ALT 37 Alkaline Phosphatase 138 H Total Protein 8.2 Albumin 4.2 Albumin/Globulin Ratio 1.1 Lipase 152 H Urine Color [place] Urine Turbidity Clear Urine pH 5.0 Ur Specific [place] 1.011 Urine Protein <15 mg/dl Urine Glucose (UA) Neg Urine Ketones Neg Urine Blood Sm Urine Nitrite Neg Urine Bilirubin Neg Urine Urobilinogen 4.0 Ur Leukocyte Esterase Tr Urine WBC (Auto) 3.0 Urine RBC (Auto) 2.0 U Epithel Cells (Auto) 1.0 Urine Bacteria (Auto) 1+ - Differential Diagnosis pancreatitis Critical care attestation.: If time is entered above; I have spent that time in minutes in the direct care of this critically ill patient, excluding procedure time. ED Disposition Clinical Impression: Acute pancreatitis, Acute abdominal pain Disposition: 09 OP ADMIT IP TO THIS HOSP Is pt being admited?: Yes Does the pt Need Aspirin: No Condition: Fair Time of Disposition: 02:53 (hospitalist paged (Dr. Edwina Paz))
[2019-06-25] MEDS ORDERED: SODIUM CHLORIDE FLUSH SYRINGE 10 ML IV PRN (04:31)
[2019-06-25] MEDS ORDERED: ZOFRAN IV PRN (04:31)
[2019-06-25] MEDS ORDERED: TYLENOL PO PRN (04:31)
--- NOTE | 2019-06-25 04:34 | History and Physical Report ---
History of Present Illness Date of examination: 06/25/19 History of present illness: 43 -year-old man with alcohol abuse comes emergency room with complaints of abdominal pain located in the epigastric area that started since last Monday. He stated that the pain is constant, sharp, intensity 7/10, radiating to the neda k, relieved with IV medication given in the emergency room. Denies nausea vomiting. He was seen on June 22 similar symptoms, refused admission at that time Review Of Systems: Constitutional: no weight loss, fever, chills Ears, eyes, nose, mouth and throat: no nasal congestion, no nasal discharge, no sinus pressure, blurry vision, diplopia Neck: No neck pain or rigidity. Cardiovascular: No palpitations, chest pain Respiratory: No shortness of breath, cough Gastrointestinal: No hematochezia, abdominal pain Genitourinary : no dysuria, frequency , hematuria Musculoskeletal: no muscle ache , joint pain Integumentary: no rash, no pruritis Neurological: no parathesias, focal weakness Endocrine: no cold or heat intolerance, no polyuria or polydipsia Hematologic/Lymphatic: no easy bruising, no easy bleeding, no gland swelling Allergic/Immunologic: no urticaria, no angioedema. PAST MEDICAL HISTORY:alcohol abuse PAST SURGICAL HISTORY:None FAMILY HISTORY:hypertension, diabetes SOCIAL HISTORY: Denies tobacco, drugs, +alcohol Medications and Allergies Allergies Allergy/AdvReac Type Severity Reaction Status Date / Time No Known Allergies Allergy Unverified 03/18/18 08:17 Home Medications Medication Instructions Recorded Confirmed Last Taken Type Multivitamin Tab [Multiple Vitamin 1 each PO QDAY #30 tablet 03/18/18 06/25/19 Unknown Rx TAB (Theragran)] Folic Acid [Folvite] 1 mg PO QDAY #30 tablet 06/26/19 Unknown Rx HYDROcodone/APAP 5-325 [[place] 1 - 2 each PO Q6HR PRN #4 tablet 06/26/19 Unknown Rx 5-325 mg TAB] Ondansetron [Zofran ODT TAB] 4 mg PO Q8HR #15 tab.rapdis 06/26/19 Unknown Rx Thiamine [Vitamin B-1] 100 mg PO QDAY #30 tablet 06/26/19 Unknown Rx Active Meds: Active Medications Acetaminophen (Tylenol) 650 mg PO Q4H PRN PRN Reason: Pain MILD(1-3)/Fever >100.5/MERCEDES Enoxaparin Sodium (Lovenox) 30 mg SUB-Q QDAY [facility] Sodium Chloride (Nacl 0.9% 1000 Ml) 1,000 mls @ 125 mls/hr IV DIRECT ROSE Morphine Sulfate (Morphine) 2 mg IV Q4H PRN PRN Reason: Pain, Moderate (4-6) Ondansetron HCl (Zofran) 4 mg IV Q4H PRN PRN Reason: Nausea And Vomiting Sodium Chloride (Sodium Chloride Flush Syringe 10 Ml) 10 ml IV BID ROSE Sodium Chloride (Sodium Chloride Flush Syringe 10 Ml) 10 ml IV PRN PRN PRN Reason: LINE FLUSH Exam - Physical Exam Narrative exam: General Apperance: The patient sitting in bed no acute distress HEENT: Normocephalic, atraumatic. Pupils equally round and reactive to light, extraocular movement intact, and no sclericterus or JVD or thyromegaly or nodule. Neck supple, no carotid bruit, mucous membranes moist, no exudate or erythema Heart: S1-S2, regular is rhythm Lungs: Clear to auscultation bilaterally, breathing comfortable Abdomen: Positive bowel sounds, soft, tender in the epigastric, nondistended, no organomegaly Extremities: No edema cyanosis clubbing Skin: no rash, nodule, warm and dry Neuro:CN 2 -12 intact, motor/sensory intact, speech is fluent - Constitutional Vitals: Temp Pulse Resp BP Pulse Ox 98.1 F 102 H 18 126/84 99 06/24/19 23:21 06/24/19 23:21 06/24/19 23:21 06/24/19 23:21 06/24/19 23:21 Results - Labs CBC & Chem 7: 06/26/19 04:17 06/26/19 04:17 Labs: Abnormal lab results 06/24/19 06/24/19 Range/Units 23:40 23:40 MCH 34 H (28-32) pg [place] % (Auto) 13.2 H (0.0-7.3) % [place] # 0.9 H (0.0-0.8) K/mm3 Sodium 136 L (137-145) mmol/L Chloride 95.2 L (98-107) mmol/L BUN 7 L (9-20) mg/dL Creatinine 0.7 L (0.8-1.5) mg/dL AST 49 H (5-40) units/L Alkaline Phosphatase 138 H (35-129) units/L Lipase 152 H (13-60) units/L Assessment and Plan Some of the abdomen reviewed on June 22 Assessment Acute pancreatitis secondary to alcohol abuse Alcohol abuse Plan Start biwel rest, IV fluid, IV morphine, DVT prophylaxis
[2019-06-25] MEDS ORDERED: MORPHINE ONE (06:48)
[2019-06-25] MEDS: MORPHINE IV PRN (06:50)
[2019-06-25] MEDS ORDERED: DILAUDID IV ONE (08:17)
[2019-06-25] MEDS ORDERED: LOVENOX SUB-Q SCH (10:00)
[2019-06-25] MEDS: LOVENOX SUB-Q SCH (10:23)
[2019-06-25] MEDS: SODIUM CHLORIDE FLUSH SYRINGE 10 ML IV SCH ×2 (10:24→21:47)
[2019-06-25] MEDS: PERCOCET 5/325 PO PRN ×2 (12:50→20:42)
--- NOTE | 2019-06-25 15:01 | Event Note ---
Date: 06/25/19 Patient seen and examined. Medical records and medication list reviewed. Admitted with epigastric pain nausea and vomiting Continue IV fluid, pain management, advance diet as tolerated If clinically stable possible discharge tomorrow
[2019-06-25] MEDS: NACL 0.9% 1000 ML 1,000 ML IV SCH (21:47)
[2019-06-26] MEDS: MORPHINE IV PRN ×2 (00:55→05:59)
[2019-06-26 05:30] LABS: BUN/Creatinine Ratio 6; Blood Urea Nitrogen 5 mg/dL (9-20); Calcium 9.1 mg/dL (8.4-10.2); Hemolysis Index 10
[2019-06-26 05:51] VITALS: BP 137/88
[2019-06-26 05:52] LABS: Basophils % (Auto) 0.6 % (0.0-1.8); Eosinophils # (Auto) 0.1 K/mm3 (0.0-0.4); Eosinophils % (Auto) 2.2 % (0.0-4.3); Hematocrit 39.7 % (35.5-45.6); Hemoglobin 13.2 gm/dl (11.8-15.2); Lymphocytes # (Auto) 1.2 K/mm3 (1.2-5.4); Lymphocytes % (Auto) 25.9 % (13.4-35.0); Mean Corpuscular HGB Conc 33 % (32-34); Mean Corpuscular Volume 95 fl (84-94); Mean Platelet Volume 7.3 fl (6-12); Monocytes # (Auto) 0.5 K/mm3 (0.0-0.8); Platelet Count 216 K/mm3 (140-440); Red Blood Count 4.18 M/mm3 (3.65-5.03); Red Cell Distribution Width 13.3 % (13.2-15.2)
[2019-06-26] MEDS: NACL 0.9% 1000 ML 1,000 ML IV SCH (05:59)
[2019-06-26] MEDS: LOVENOX SUB-Q SCH (08:11)
[2019-06-26] MEDS: SODIUM CHLORIDE FLUSH SYRINGE 10 ML IV SCH (08:11)
--- NOTE | 2019-06-26 09:03 | Discharge Summary ---
Providers - Providers Date of Admission: 06/25/19 04:34 Date of discharge: 06/26/19 Attending physician: JOSHUA KING [facility] Condition: Fair Hospital course: Discharge diagnosis: Acute pancreatitis secondary to alcohol abuse Alcohol abuse, counselled Disposition: DC-01 TO HOME OR SELFCARE Time spent for discharge: 34 minutes Core Measure Documentation - Palliative Care Palliative Care/ Comfort Measures: Not Applicable - Core Measures Any of the following diagnoses?: none Exam - Constitutional Vitals: Temp Pulse Resp BP Pulse Ox 98.5 F 83 20 137/88 100 06/26/19 05:47 06/26/19 05:47 06/26/19 05:47 06/26/19 05:47 06/26/19 05:47 General appearance: Present: no acute distress, well-nourished - EENT Eyes: Present: PERRL ENT: hearing intact, clear oral mucosa - Neck Neck: Present: supple, normal ROM - Respiratory Respiratory effort: normal Respiratory: bilateral: CTA - Cardiovascular Heart Sounds: Present: S1 & S2. Absent: rub, click - Extremities Extremities: pulses symmetrical, No edema Peripheral Pulses: within normal limits - Abdominal General gastrointestinal: Present: soft, non-tender, non-distended, normal bowel sounds - Integumentary Integumentary: Present: clear, warm, dry - Musculoskeletal Musculoskeletal: gait normal, strength equal bilaterally - Psychiatric Psychiatric: appropriate mood/affect, intact judgment & insight - Neurologic Neurologic: CNII-XII intact, moves all extremities Plan Activity: advance as tolerated Weight Bearing Status: Weight Bear as Tolerated Diet: low fat, low salt Follow up with: [facility] [place] MD PATRICIA [Primary Care Provider] - 7 Days Prescriptions: Folic Acid [Folvite] 1 mg PO QDAY #30 tablet HYDROcodone/APAP 5-325 [[place] 5-325 mg TAB] 1 - 2 each PO Q6HR PRN #4 tablet PRN Reason: Pain Thiamine [Vitamin B-1] 100 mg PO QDAY #30 tablet Ondansetron [Zofran ODT TAB] 4 mg PO Q8HR #15 tab.[email or web address]
== END 2019-06-26 11:37 | disposition home or self-care (01) | DRG 440 ==
LOC: ED 22:09 → 3A 06-25 04:34
PROVIDERS: ADMIT Internal Medicine; ATTEND Internal Medicine
DX: K85.90 Acute pancreatitis without necrosis or infection, unspecified (principal); I10 Essential (primary) hypertension; K85.20 Alcohol induced acute pancreatitis without necrosis or infection; F12.90 Cannabis use, unspecified, uncomplicated; F10.10 Alcohol abuse, uncomplicated; F17.210 Nicotine dependence, cigarettes, uncomplicated; Y90.9 Presence of alcohol in blood, level not specified; F17.200 Nicotine dependence, unspecified, uncomplicated; Z83.3 Family history of diabetes mellitus; Z82.49 Family history of ischemic heart disease and other diseases of the circulatory system; Z71.41 Alcohol abuse counseling and surveillance of alcoholic; Z71.6 Tobacco abuse counseling
CPT/HCPCS: 36415; 80048; 80053; 81001; 83690; 85025; 96361; 96374; 96375; 99406; G0378; J1170; J1650; J2270; J2405; J3010; J7030

== ENCOUNTER 2019-07-10 04:34 | Observation (INO) | payer OTHER ==
[2019-07-10 05:14] LABS: Basophils # (Auto) 0.1 K/mm3 (0.0-0.1); Basophils % (Auto) 1.1 % (0.0-1.8); Eosinophils # (Auto) 0.1 K/mm3 (0.0-0.4); Hemoglobin 15.7 gm/dl (11.8-15.2); Lymphocytes # (Auto) 1.5 K/mm3 (1.2-5.4); Lymphocytes % (Auto) 28.8 % (13.4-35.0); Mean Corpuscular HGB Conc 33 % (32-34); Mean Corpuscular Volume 94 fl (84-94); Monocytes # (Auto) 0.4 K/mm3 (0.0-0.8); Monocytes % (Auto) 8.5 % (0.0-7.3); Platelet Count 244 K/mm3 (140-440); Red Blood Count 4.98 M/mm3 (3.65-5.03); Red Cell Distribution Width 13.9 % (13.2-15.2)
[2019-07-10 05:19] LABS: Bilirubin,Urine NEG (Negative); Blood,Urine NEG (Negative); Color,Urine Yellow (Yellow); Mucus,Urine FEW /HPF; Protein,Urine <15 mg/dL mg/dL (Negative)
[2019-07-10 05:43] LABS: Alanine Aminotransferase 38 units/L (7-56); Albumin 4.3 g/dL (3.9-5); BUN/Creatinine Ratio 13; Blood Urea Nitrogen 10 mg/dL (9-20); Calcium 9.4 mg/dL (8.4-10.2); Hemolysis Index 6
[2019-07-10] MEDS ORDERED: NACL 0.9% 1000 ML 1,000 ML IV ONE (06:55)
[2019-07-10] MEDS ORDERED: MORPHINE IV ONE ×3 (06:55→10:04)
[2019-07-10] MEDS ORDERED: ZOFRAN IV ONE (06:55)
--- NOTE | 2019-07-10 07:01 | Emergency Department Report ---
ED General Adult HPI - General Chief complaint: Abdominal Pain Stated complaint: ABDOMINAL PAIN Time Seen by Provider: 07/10/19 06:51 Source: patient Mode of arrival: Ambulatory Limitations: No Limitations - History of Present Illness Initial comments: Patient presents to the emergency department with a chief complaint of mid abdominal and right upper quadrant abdominal pain that started yesterday. Patient states that he constantly two 16 ounces of beer 4 days ago. Patient states he was recently admitted to the hospital for pancreatitis. Patient states the pain radiates into her scapula and describes it as sharp in nature. -: Sudden Location: abdomen Radiation: other (back) Severity scale (0 -10): 9 Quality: sharp Consistency: constant Improves with: none Worsens with: none Associated Symptoms: denies other symptoms Treatments Prior to Arrival: none - Related Data Previous Rx's Medication Instructions Recorded Last Taken Type Folic Acid [Folvite] 1 mg PO QDAY #30 tablet 07/11/19 Unknown Rx Thiamine [Vitamin B-1] 100 mg PO QDAY #30 tablet 07/11/19 Unknown Rx diphenhydrAMINE [Benadryl CAP] 25 mg PO Q6HR PRN #20 capsule 07/11/19 Unknown Rx oxyCODONE /ACETAMINOPHEN [Percocet 1 tab PO Q4HR #20 tab 07/11/19 Unknown Rx 5/325] Allergies Allergy/AdvReac Type Severity Reaction Status Date / Time No Known Allergies Allergy Unverified 03/18/18 08:17 ED Review of Systems ROS: Stated complaint: ABDOMINAL PAIN Other details as noted in HPI Comment: All other systems reviewed and negative Constitutional: denies: chills, fever Eyes: denies: eye pain, eye discharge, vision change ENT: denies: ear pain, throat pain Respiratory: denies: cough, shortness of breath, wheezing Cardiovascular: denies: chest pain, palpitations Endocrine: no symptoms reported Gastrointestinal: abdominal pain. denies: nausea, diarrhea Genitourinary: denies: urgency, dysuria Musculoskeletal: denies: back pain, joint swelling, arthralgia Skin: denies: rash, lesions Neurological: denies: headache, weakness, paresthesias Psychiatric: denies: anxiety, depression Hematological/Lymphatic: denies: easy bleeding, easy bruising ED Past Medical Hx - Past Medical History Previous Medical History?: Yes Hx Hypertension: Yes (no meds) Hx Congestive Heart Failure: No Hx Diabetes: No Hx Asthma: No Hx COPD: No Hx HIV: No Additional medical history: pancreatitis - Surgical History Past Surgical History?: No - Social History Smoking Status: Current Every Day Smoker Substance Use Type: Alcohol, Marijuana - Medications Home Medications: Home Medications Medication Instructions Recorded Confirmed Last Taken Type Folic Acid [Folvite] 1 mg PO QDAY #30 tablet 07/11/19 Unknown Rx Thiamine [Vitamin B-1] 100 mg PO QDAY #30 tablet 07/11/19 Unknown Rx diphenhydrAMINE [Benadryl CAP] 25 mg PO Q6HR PRN #20 capsule 07/11/19 Unknown Rx oxyCODONE /ACETAMINOPHEN [Percocet 1 tab PO Q4HR #20 tab 07/11/19 Unknown Rx 5/325] ED Physical Exam - General Limitations: No Limitations General appearance: alert, in no apparent distress - Head Head exam: Present: atraumatic, normocephalic - Eye Eye exam: Present: normal appearance, PERRL, EOMI - ENT ENT exam: Present: mucous membranes dry - Neck Neck exam: Present: normal inspection - Respiratory Respiratory exam: Present: normal lung sounds bilaterally. Absent: respiratory distress - Cardiovascular Cardiovascular Exam: Present: normal rhythm, tachycardia. Absent: systolic murmur, diastolic murmur, rubs, gallop - GI/Abdominal GI/Abdominal exam: Present: soft, tenderness (tenderness to palpation along upper quadrant and epigastric region), normal bowel sounds. Absent: distended - Rectal Rectal exam: Present: deferred - Extremities Exam Extremities exam: Present: normal inspection - Back Exam Back exam: Present: normal inspection - Neurological Exam Neurological exam: Present: alert, oriented X3, CN II-XII intact. Absent: motor sensory deficit - Psychiatric Psychiatric exam: Present: normal affect, normal mood - Skin Skin exam: Present: warm, dry, intact, normal color. Absent: rash ED Course Vital Signs 07/10/19 07/10/19 07/10/19 04:36 06:10 08:43 Temperature 97.6 F Pulse Rate 101 H 85 92 H Respiratory 20 16 20 Rate Blood Pressure 164/104 Blood Pressure 126/71 148/92 [Left] O2 Sat by Pulse 100 95 100 Oximetry 07/10/19 07/10/19 10:11 12:15 Temperature Pulse Rate 82 85 Respiratory 17 17 Rate Blood Pressure Blood Pressure 160/88 153/69 [Left] O2 Sat by Pulse 100 Oximetry ED Medical Decision Making - Lab Data Result diagrams: 07/11/19 05:18 07/11/19 05:18 Lab Results 07/10/19 07/10/19 07/10/19 Range/Units 04:47 04:47 04:50 WBC 5.2 (4.5-11.0) K/mm3 RBC 4.98 (3.65-5.03) M/mm3 Hgb 15.7 H (11.8-15.2) gm/dl Hct 47.0 H (35.5-45.6) % MCV 94 (84-94) fl MCH 32 (28-32) pg MCHC 33 (32-34) % RDW 13.9 (13.2-15.2) % Plt Count 244 (140-440) K/mm3 Lymph % (Auto) 28.8 (13.4-35.0) % Starr % (Auto) 8.5 H (0.0-7.3) % Eos % (Auto) 1.0 (0.0-4.3) % Baso % (Auto) 1.1 (0.0-1.8) % Lymph # 1.5 (1.2-5.4) K/mm3 Starr # 0.4 (0.0-0.8) K/mm3 Eos # 0.1 (0.0-0.4) K/mm3 Baso # 0.1 (0.0-0.1) K/mm3 Seg Neutrophils % 60.6 (40.0-70.0) % Seg Neutrophils # 3.1 (1.8-7.7) K/mm3 Sodium 144 (137-145) mmol/L Potassium 3.8 (3.6-5.0) mmol/L Chloride 100.4 (98-107) mmol/L Carbon Dioxide 29 (22-30) mmol/L Anion Gap 18 mmol/L BUN 10 (9-20) mg/dL Creatinine 0.8 (0.8-1.5) mg/dL Estimated GFR > 60 ml/min BUN/Creatinine Ratio 13 % Glucose 125 H (75-100) mg/dL Calcium 9.4 (8.4-10.2) mg/dL Total Bilirubin 0.50 (0.1-1.2) mg/dL AST 165 H (5-40) units/L ALT 38 (7-56) units/L Alkaline Phosphatase 139 H (35-129) units/L Total Protein 8.0 (6.3-8.2) g/dL Albumin 4.3 (3.9-5) g/dL Albumin/Globulin Ratio 1.2 % Lipase 3513 H (13-60) units/L Urine Color Yellow (Yellow) Urine Turbidity Clear (Clear) Urine pH 5.0 (5.0-7.0) Ur Specific [place] 1.014 (1.003-1.030) Urine Protein <15 mg/dl (Negative) mg/dL Urine Glucose (UA) Neg (Negative) mg/dL Urine Ketones Neg (Negative) mg/dL Urine Blood Neg (Negative) Urine Nitrite Neg (Negative) Urine Bilirubin Neg (Negative) Urine Urobilinogen 2.0 (<2.0) mg/dL Ur Leukocyte Esterase Tr (Negative) Urine WBC (Auto) 5.0 (0.0-6.0) /HPF Urine RBC (Auto) 3.0 (0.0-6.0) /HPF U Epithel Cells (Auto) < 1.0 (0-13.0) /HPF Urine Mucus Few /HPF Plasma/Serum Alcohol (0-0.07) % 07/10/19 Range/Units 07:02 WBC (4.5-11.0) K/mm3 RBC (3.65-5.03) M/mm3 Hgb (11.8-15.2) gm/dl Hct (35.5-45.6) % MCV (84-94) fl MCH (28-32) pg MCHC (32-34) % RDW (13.2-15.2) % Plt Count (140-440) K/mm3 Lymph % (Auto) (13.4-35.0) % Starr % (Auto) (0.0-7.3) % Eos % (Auto) (0.0-4.3) % Baso % (Auto) (0.0-1.8) % Lymph # (1.2-5.4) K/mm3 Starr # (0.0-0.8) K/mm3 Eos # (0.0-0.4) K/mm3 Baso # (0.0-0.1) K/mm3 Seg Neutrophils % (40.0-70.0) % Seg Neutrophils # (1.8-7.7) K/mm3 Sodium (137-145) mmol/L Potassium (3.6-5.0) mmol/L Chloride (98-107) mmol/L Carbon Dioxide (22-30) mmol/L Anion Gap mmol/L BUN (9-20) mg/dL Creatinine (0.8-1.5) mg/dL Estimated GFR ml/min BUN/Creatinine Ratio % Glucose (75-100) mg/dL Calcium (8.4-10.2) mg/dL Total Bilirubin (0.1-1.2) mg/dL AST (5-40) units/L ALT (7-56) units/L Alkaline Phosphatase (35-129) units/L Total Protein (6.3-8.2) g/dL Albumin (3.9-5) g/dL Albumin/Globulin Ratio % Lipase (13-60) units/L Urine Color (Yellow) Urine Turbidity (Clear) Urine pH (5.0-7.0) Ur Specific [place] (1.003-1.030) Urine Protein (Negative) mg/dL Urine Glucose (UA) (Negative) mg/dL Urine Ketones (Negative) mg/dL Urine Blood (Negative) Urine Nitrite (Negative) Urine Bilirubin (Negative) Urine Urobilinogen (<2.0) mg/dL Ur Leukocyte Esterase (Negative) Urine WBC (Auto) (0.0-6.0) /HPF Urine RBC (Auto) (0.0-6.0) /HPF U Epithel Cells (Auto) (0-13.0) /HPF Urine Mucus /HPF Plasma/Serum Alcohol < 0.01 (0-0.07) % - Radiology Data Radiology results: report reviewed - Medical Decision Making Results discussed with patient Critical Care Time: Yes Critical care time in (mins) excluding proc time.: 35 Critical care attestation.: If time is entered above; I have spent that time in minutes in the direct care of this critically ill patient, excluding procedure time. ED Disposition Clinical Impression: Pancreatitis, acute Disposition: DC-09 OP ADMIT IP TO THIS HOSP Is pt being admited?: Yes Does the pt Need Aspirin: No Condition: Fair
--- NOTE | 2019-07-10 08:18 | Ultrasound Report ---
LIMITED RUQ ABDOMINAL ULTRASOUND INDICATION: RUQ ab pain with elevated lipase. COMPARISON: 06/22/2019. FINDINGS: Pancreas: Visualized portions show no significant abnormality. Abdominal Aorta: No significant abnormality. IVC: No significant abnormality. Liver: Diffuse hepatic steatosis is again noted. No liver mass is identified.. Normal hepatopedal blo od flow in the main portal vein. Gallbladder: No significant abnormality. Bile ducts: No significant abnormality. Common bile duct measures mm. Right kidney: No significant abnormality visualized.. Free fluid: None. Additional Findings: None. IMPRESSION: Diffuse fatty infiltration of the liver. No significant change since 06/22/2019.. Signer Name: Hemanth Eli Jr, MD Signed: 07/10/2019 8:13 AM Workstation Name: [id number]
--- NOTE | 2019-07-10 12:47 | History and Physical Report ---
History of Present Illness Date of examination: 07/10/19 Date of admission: 07/10/19 11:41 Chief complaint: abd pain History of present illness: 43 -year-old man with alcohol abuse comes emergency room with complaints of abdominal pain located in the epigastric area that started since last evening. Patient describes pain as a sharp epigastric pain radiating to the back. Patient was recently hospitalized here and discharged on 06/26/19 with diagnosis of acute pancreatitis. Patient denies any alcohol intake in the past 4 days. However, patient reports approximate 4 days ago having to 16 hours beers. Patient normally drinks approximately a sixpack daily along with 2 shots of alcohol. Patient denies any nausea or vomiting. No hematemesis or melena. No cough, like symptoms. No headache or visual disturbances. Past History Past Medical History: other (pancreatitis) Past Surgical History: No surgical history Social history: alcohol abuse Family history: hypertension Medications and Allergies Allergies Allergy/AdvReac Type Severity Reaction Status Date / Time No Known Allergies Allergy Unverified 03/18/18 08:17 Home Medications Medication Instructions Recorded Confirmed Last Taken Type Folic Acid [Folvite] 1 mg PO QDAY #30 tablet 06/26/19 07/10/19 07/09/19 Rx Thiamine [Vitamin B-1] 100 mg PO QDAY #30 tablet 06/26/19 07/10/19 07/09/19 Rx Review of Systems All systems: negative Exam - Constitutional Vitals: Temp Pulse Resp BP Pulse Ox 97.6 F 85 17 153/69 100 07/10/19 04:36 07/10/19 12:15 07/10/19 12:15 07/10/19 12:15 07/10/19 12:15 General appearance: Present: no acute distress, well-nourished - EENT Eyes: Present: PERRL ENT: hearing intact, clear oral mucosa - Neck Neck: Present: supple, normal ROM - Respiratory Respiratory effort: normal Respiratory: bilateral: CTA - Cardiovascular Heart Sounds: Present: S1 & S2. Absent: rub, click - Extremities Extremities: pulses symmetrical, No edema Peripheral Pulses: within normal limits - Abdominal General gastrointestinal: Present: soft, tender, non-distended, normal bowel sounds Localized gastrointestinal: tender: epigastric periumbilical Male genitourinary: Present: normal - Integumentary Integumentary: Present: clear, warm, dry - Musculoskeletal Musculoskeletal: gait normal, strength equal bilaterally - Psychiatric Psychiatric: appropriate mood/affect, intact judgment & insight - Neurologic Neurologic: CNII-XII intact, moves all extremities Results - Labs CBC & Chem 7: 07/10/19 04:47 07/10/19 04:47 Labs: Laboratory Last Values WBC 5.2 K/mm3 (4.5-11.0) 07/10/19 04:47 RBC 4.98 M/mm3 (3.65-5.03) 07/10/19 04:47 Hgb 15.7 gm/dl (11.8-15.2) H 07/10/19 04:47 Hct 47.0 % (35.5-45.6) H 07/10/19 04:47 MCV 94 fl (84-94) 07/10/19 04:47 MCH 32 pg (28-32) 07/10/19 04:47 MCHC 33 % (32-34) 07/10/19 04:47 RDW 13.9 % (13.2-15.2) 07/10/19 04:47 Plt Count 244 K/mm3 (140-440) 07/10/19 04:47 Lymph % (Auto) 28.8 % (13.4-35.0) 07/10/19 04:47 Petroleum % (Auto) 8.5 % (0.0-7.3) H 07/10/19 04:47 Eos % (Auto) 1.0 % (0.0-4.3) 07/10/19 04:47 Baso % (Auto) 1.1 % (0.0-1.8) 07/10/19 04:47 Lymph # 1.5 K/mm3 (1.2-5.4) 07/10/19 04:47 Petroleum # 0.4 K/mm3 (0.0-0.8) 07/10/19 04:47 Eos # 0.1 K/mm3 (0.0-0.4) 07/10/19 04:47 Baso # 0.1 K/mm3 (0.0-0.1) 07/10/19 04:47 Seg Neutrophils % 60.6 % (40.0-70.0) 07/10/19 04:47 Seg Neutrophils # 3.1 K/mm3 (1.8-7.7) 07/10/19 04:47 Sodium 144 mmol/L (137-145) 07/10/19 04:47 Potassium 3.8 mmol/L (3.6-5.0) 07/10/19 04:47 Chloride 100.4 mmol/L (98-107) 07/10/19 04:47 Carbon Dioxide 29 mmol/L (22-30) 07/10/19 04:47 18 mmol/L 07/10/19 04:47 BUN 10 mg/dL (9-20) 07/10/19 04:47 0.8 mg/dL (0.8-1.5) 07/10/19 04:47 Estimated GFR > 60 ml/min 07/10/19 04:47 13 % 07/10/19 04:47 Glucose 125 mg/dL (75-100) H 07/10/19 04:47 Calcium 9.4 mg/dL (8.4-10.2) 07/10/19 04:47 0.50 mg/dL (0.1-1.2) 07/10/19 04:47 AST 165 units/L (5-40) H 07/10/19 04:47 ALT 38 units/L (7-56) 07/10/19 04:47 139 units/L (35-129) H 07/10/19 04:47 8.0 g/dL (6.3-8.2) 07/10/19 04:47 4.3 g/dL (3.9-5) 07/10/19 04:47 1.2 % 07/10/19 04:47 3513 units/L (13-60) H 07/10/19 04:47 Yellow (Yellow) 07/10/19 04:50 Clear (Clear) 07/10/19 04:50 5.0 (5.0-7.0) 07/10/19 04:50 Ur Specific Crane 1.014 (1.003-1.030) 07/10/19 04:50 <15 mg/dl mg/dL (Negative) 07/10/19 04:50 Neg mg/dL (Negative) 07/10/19 04:50 Neg mg/dL (Negative) 07/10/19 04:50 Neg (Negative) 07/10/19 04:50 Neg (Negative) 07/10/19 04:50 Neg (Negative) 07/10/19 04:50 2.0 mg/dL (<2.0) 07/10/19 04:50 Ur Leukocyte Esterase Tr (Negative) 07/10/19 04:50 5.0 /HPF (0.0-6.0) 07/10/19 04:50 3.0 /HPF (0.0-6.0) 07/10/19 04:50 U Epithel Cells (Auto) < 1.0 /HPF (0-13.0) 07/10/19 04:50 Few /HPF 07/10/19 04:50 Plasma/Serum Alcohol < 0.01 % (0-0.07) 07/10/19 07:02 Assessment and Plan Assessment and plan: Acute alcoholic pancreatitis. Patient will be kept nothing by mouth and we will monitor serial lipase. Supportive care with IV fluid hydration and pain control. Nothing by mouth for bowel rest. EtOH abuse. [facility] protocol. DVT prophylaxis.
[2019-07-10] MEDS ORDERED: ZOFRAN IV PRN (12:48)
[2019-07-10] MEDS ORDERED: SODIUM CHLORIDE FLUSH SYRINGE 10 ML IV PRN (12:48)
[2019-07-10] MEDS ORDERED: TYLENOL PO PRN (12:48)
[2019-07-10] MEDS ORDERED: ATIVAN IV PRN ×3 (12:50)
[2019-07-10] MEDS ORDERED: D5/0.45NS 1,000 ML IV SCH (13:00)
[2019-07-10] MEDS: MORPHINE IV PRN ×2 (15:24→22:32)
[2019-07-10] MEDS: LOVENOX SUB-Q SCH (17:17)
[2019-07-10] MEDS: BENADRYL IV PRN ×2 (17:17→22:33)
[2019-07-10] MEDS: SODIUM CHLORIDE FLUSH SYRINGE 10 ML IV SCH (21:05)
[2019-07-11 05:45] VITALS: BP 149/78
[2019-07-11] MEDS: MORPHINE IV PRN (05:56)
[2019-07-11] MEDS: BENADRYL IV PRN (05:57)
[2019-07-11 06:02] LABS: Basophils % (Auto) 0.8 % (0.0-1.8); Eosinophils # (Auto) 0.1 K/mm3 (0.0-0.4); Eosinophils % (Auto) 2.7 % (0.0-4.3); Hematocrit 42.6 % (35.5-45.6); Hemoglobin 14.5 gm/dl (11.8-15.2); Lymphocytes # (Auto) 1.6 K/mm3 (1.2-5.4); Lymphocytes % (Auto) 34.2 % (13.4-35.0); Mean Corpuscular HGB Conc 34 % (32-34); Mean Corpuscular Volume 94 fl (84-94); Monocytes # (Auto) 0.5 K/mm3 (0.0-0.8); Monocytes % (Auto) 9.6 % (0.0-7.3); Platelet Count 199 K/mm3 (140-440); Red Blood Count 4.52 M/mm3 (3.65-5.03); Red Cell Distribution Width 13.9 % (13.2-15.2)
[2019-07-11 06:21] LABS: BUN/Creatinine Ratio 6; Blood Urea Nitrogen 5 mg/dL (9-20); Calcium 9.3 mg/dL (8.4-10.2); Hemolysis Index 3
--- NOTE | 2019-07-11 08:20 | Discharge Summary ---
Providers - Providers Date of Admission: 07/10/19 11:41 Date of discharge: 07/11/19 Attending physician: ROSIO MCDERMOTT [facility] Reason for admission: pancreatitis Condition: Fair Hospital course: 43-year-old male with history of alcohol abuse presented to the emergency department with complaints of abdominal pain radiating to the back. Patient was admitted with diagnosis of acute alcoholic pancreatitis. The patient was placed on CIWA protocol. The patient was NPO/bowel rest and treated with supportive care of IV fluid hydration and IV pain control meds. Initial lipase on admission was 2513 and returned to near normal range of 79 at discharge. The patient's diet was advanced and patient is felt to have received maximal hospital benefit. Patient was counseled on alcohol cessation. Dedicated discharge time 32 minutes. Disposition: DC-01 TO HOME OR SELFCARE Time spent for discharge: 32 - Discharge Diagnoses (1) Pancreatitis, acute Status: Acute (2) Abdominal pain Status: Acute Qualifiers: Abdominal location: generalized Qualified Code(s): R10.84 - Generalized a bdominal pain (3) ETOH abuse Status: Acute Core Measure Documentation - Palliative Care Palliative Care/ Comfort Measures: Not Applicable - Core Measures Any of the following diagnoses?: none Exam - Constitutional Vitals: Temp Pulse Resp BP Pulse Ox 98.1 F 63 18 149/78 98 07/11/19 05:31 07/11/19 05:31 07/11/19 05:31 07/11/19 05:31 07/11/19 05:31 General appearance: Present: no acute distress, well-nourished - EENT Eyes: Present: PERRL ENT: hearing intact, clear oral mucosa - Neck Neck: Present: supple, normal ROM - Respiratory Respiratory effort: normal Respiratory: bilateral: CTA - Cardiovascular Heart Sounds: Present: S1 & S2. Absent: rub, click - Extremities Extremities: pulses symmetrical, No edema Peripheral Pulses: within normal limits - Abdominal General gastrointestinal: Present: soft, non-tender, non-distended, normal bowel sounds Male genitourinary: Present: normal - Integumentary Integumentary: Present: clear, warm, dry - Musculoskeletal Musculoskeletal: gait normal, strength equal bilaterally - Psychiatric Psychiatric: appropriate mood/affect, intact judgment & insight - Neurologic Neurologic: CNII-XII intact, moves all extremities Plan Activity: advance as tolerated Weight Bearing Status: Weight Bear as Tolerated Diet: regular Follow up with: KEVYN KERNS MD [Primary Care Provider] - 3-5 Days Prescriptions: diphenhydrAMINE [Benadryl CAP] 25 mg PO Q6HR PRN #20 capsule PRN Reason: Itching Folic Acid [Folvite] 1 mg PO QDAY #30 tablet oxyCODONE /ACETAMINOPHEN [Percocet 5/325] 1 tab PO Q4HR #20 tab Thiamine [Vitamin B-1] 100 mg PO QDAY #30 tablet
[2019-07-11] MEDS: LOVENOX SUB-Q SCH (09:08)
[2019-07-11] MEDS: SODIUM CHLORIDE FLUSH SYRINGE 10 ML IV SCH (09:08)
== END 2019-07-11 11:30 | disposition home or self-care (01) ==
LOC: ED 04:34 → INTOOBSV 11:41 → 3A 11:41
PROVIDERS: ADMIT Hospitalist; ATTEND Hospitalist
DX: K85.20 Alcohol induced acute pancreatitis without necrosis or infection (principal); F10.10 Alcohol abuse, uncomplicated
CPT/HCPCS: 36415; 76705; 80048; 80053; 81001; 83690; 85025; 87116; 96372; 96374; 96375; 96376; 99291; 99406; G0378; J1200; J1650; J2270; J2405; J7030; 80320; 96361; G0480